=== PATIENT | male | born 1980 ===

== ENCOUNTER 2017-04-08 00:40 | Emergency (ER) | payer OTHER ==
[2017-04-08 01:38] VITALS: BP 99/69
[2017-04-08 02:07] LABS: Basophils % (Auto) 0.8 % (0.0-1.8); Eosinophils % (Auto) 1.7 % (0.0-4.3); Hematocrit 39.5 % (35.5-45.6); Hemoglobin 13.8 gm/dl (11.8-15.2); Mean Corpuscular HGB Conc 35 % (32-34); Mean Corpuscular Hemoglobin 30 pg (28-32); Mean Corpuscular Volume 87 fl (84-94); Platelet Count 218 K/mm3 (140-440); Red Blood Count 4.53 M/mm3 (3.65-5.03); Red Cell Distribution Width 15.7 % (13.2-15.2); White Blood Count 5.3 K/mm3 (4.5-11.0)
[2017-04-08 02:27] LABS: Alanine Aminotransferase 68 units/L (7-56); Albumin 4.4 g/dL (3.9-5); Albumin/Globulin Ratio 1.5 %; Alkaline Phosphatase 222 units/L (35-129); Anion Gap 20 mmol/L; BUN/Creatinine Ratio 14; Blood Urea Nitrogen 15 mg/dL (9-20); Calcium 9.2 mg/dL (8.4-10.2); Carbon Dioxide 22 mmol/L (22-30); Chloride 97.1 mmol/L (98-107); Glucose 368 mg/dL (75-100); Lipase 60 units/L (13-60); Potassium 3.9 mmol/L (3.6-5.0); Sodium 135 mmol/L (137-145); Total Protein 7.3 g/dL (6.3-8.2)
[2017-04-08 04:50] LABS: Bilirubin,Urine NEG (Negative); Blood,Urine LG (Negative); Ketones,Urine TR mg/dL (Negative); Leukocyte Esterase,Urine NEG (Negative); Mucus,Urine 1+ /HPF; Nitrite,Urine NEG (Negative); Urobilinogen,Urine < 2.0 mg/dL (<2.0)
[2017-04-08 04:51] LABS: RBC,Urine > 182.0 /HPF (0.0-6.0)
== END 2017-04-08 20:30 | disposition left against medical advice (07) ==
LOC: ED 00:40
DX: R07.89 Other chest pain (principal); R42 Dizziness and giddiness; Z53.21 Procedure and treatment not carried out due to patient leaving prior to being seen by health care provider
CPT/HCPCS: 36415; 80053; 81001; 83690; 85025